=== PATIENT | male | born 1950 | race Caucasian/White ===

== ENCOUNTER → 2019-06-08 | Outpatient (CLI) | payer OTHER ==
--- NOTE | 2019-06-08 14:26 | REP ---
LEFT ELBOW, FOUR VIEWS: Four views of the left elbow performed. No acute fracture or dislocation is seen. There is soft tissue swelling over the olecranon. Rounded calcification is seen adjacent to the medial humeral epicondyle. IMPRESSION: No acute fracture or dislocation. Olecranon soft tissue swelling. Electronically Signed by Eugene Rouse MD 06/09/2019 09:09 A
--- NOTE | 2019-06-08 14:46 | REP ---
Left tibia-fibula four views: There is soft tissue edema adjacent to the lateral malleolus. There is questionably a nondisplaced fracture of the distal fibula. There is an accessory ossicle at the tip of the medial malleolus. No other fracture is identified. Mineralization is normal. Impression: Probable nondisplaced fracture of the distal fibula. Electronically Signed by Eugene Ozuna MD 06/08/2019 02:37 P
--- NOTE | 2019-06-08 15:51 | REP ---
HISTORY: Pain after trauma. COMPARISON: None. A smoothly marginated well-corticated ossific density is seen distal to the medial malleolus. There is tibiotalar marginal osteophytosis. There is narrowing of the mortise. There is a tiny lucency seen involving the cortex of the distal fibula only on one view. There is overlying soft tissue swelling. IMPRESSION: 1. Possible tiny distal fibular fracture which is incomplete and seen in association with overlying soft tissue swelling. This should be correlated clinically. However, I will reiterate that there are no priors for comparison. 2. Old healed medial malleolar fracture. 3. Chronic changes with osteophytosis and asymmetric narrowing of the mortise. 4. Small plantar calcaneal heel spur. Electronically Signed by Louis Silva DO 06/08/2019 05:04 P
== END ==
LOC: M RAD 13:28
PROVIDERS: ATTEND Physician Assistant
DX: M25.772 Osteophyte, left ankle (principal); S59.909A Unspecified injury of unspecified elbow, initial encounter; X58.XXXA Exposure to other specified factors, initial encounter; Y92.89 Other specified places as the place of occurrence of the external cause

== ENCOUNTER → 2020-05-30 | Outpatient (CLI) | payer OTHER ==
--- NOTE | 2020-05-31 15:03 | ECHO ---
DATE OF PROCEDURE: 05/30/2020 Age: 69 Gender: Male Height: 70 inches Weight: 217 pounds Body surface area: 2.15 m2 PATIENT LOCATION: Outpatient. REFERRING PHYSICIAN: Dr. Ramón Cook. INDICATION: Hypertensive heart disease. MEASUREMENTS: 2D Measurements: RV 3.0 cm LV 5.3 cm Septum 1.0 cm Posterior wall 1.0 cm Aortic Root 4.2 cm Ascending aorta 3.9 cm LA 4.0 cm LVEF 65% Doppler Measurements: AV 1.45 m/s LVOT 1.05 m/s LVOT diameter 1.8 cm MV-E 73, A 99, E/A ratio 0.7 Early mitral deceleration time 278 m/s E prime medial 6.5, A prime medial 10.7, E prime lateral 10.9 Average E/E prime ratio 8.4/PCWP 12.3 mmHg PV 0.7 m/s Pulmonary artery acceleration time 116 m/s PASP 3 mmHg IVC 1.8 cm COMMENTS: Normal sinus rhythm without intraventricular conduction disturbance. M-mode and two-dimensional echocardiography was performed with pulsed, continuous wave, color flow, and tissue Doppler studies. Normal left ventricular size, wall thickness, and wall motion. Slightly dilated left atrium with grade 1 left ventricular diastolic dysfunction, but currently normal estimated mean left atrial pressure. Normal right heart chamber sizes and motion with Doppler sign of borderline pulmonary hypertension. Normal inferior vena cava (IVC) size and collapse against an elevated central venous pressure. Mildly dilated aortic root and ascending aorta. Mild aortic valvular sclerosis with slightly asymmetric thickening of the noncoronary cusp, but adequate cusp separation. Very mild aortic insufficiency. Mild degenerative changes of his mitral valvular apparatus without inflow tract obstruction and only very mild insufficiency. Normal appearing tricuspid valve with very mild insufficiency. No apparent intracardiac mass or pericardial effusion. MTDD
== END ==
LOC: M CARPUL 08:20
PROVIDERS: ATTEND Internal Medicine
DX: I11.9 Hypertensive heart disease without heart failure (principal); E78.2 Mixed hyperlipidemia; R73.09 Other abnormal glucose; E66.3 Overweight; M25.562 Pain in left knee

== ENCOUNTER → 2020-07-25 | Outpatient (CLI) | payer OTHER ==
--- NOTE | 2020-07-25 13:25 | REPVR ---
PROCEDURE INFORMATION: Exam: MR Cervical Spine Without Contrast Exam date and time: 07/25/2020 12:09 PM Age: 70 years old Clinical indication: Neck pain; Additional info: Cervicalgia TECHNIQUE: Imaging protocol: Multiplanar magnetic resonance images of the cervical spine without contrast. COMPARISON: CR C-SPINE - OUTSIDE PRIOR 05/22/2020 8:32 AM FINDINGS: Vertebrae: There is no fracture or listhesis. Normal vertebral body alignment and heights are preserved. There is severe intervertebral disc space loss at C6/7. Spinal cord: Normal signal. No cord compression. C2-C3: No significant disc disease. No significant spinal stenosis. C3-C4: There is a shallow disc osteophyte complex. There is moderate facet hypertrophy. There is moderate to severe left neural foraminal narrowing. C4-C5: There is a shallow disc osteophyte complex. There is moderate facet hypertrophy. There is mild right and severe left neural foraminal narrowing. C5-C6: There is a shallow disc osteophyte complex. There is moderate to severe facet hypertrophy asymmetric to the right. There is mild right and severe left neural foraminal narrowing. C6-C7: There is a shallow disc osteophyte complex. There is moderate facet hypertrophy. There is mild bilateral neural foraminal narrowing. C7-T1: There is a shallow disc osteophyte complex asymmetric to the left. There is moderate facet hypertrophy. There is moderate left neural foraminal narrowing. Vertebral arteries: Expected flow voids in the vertebral arteries. Soft tissues: Unremarkable. IMPRESSION: Degenerative disc disease and spondylosis, with multilevel moderate to severe neural foraminal narrowing. Electronically signed by: Odessa Cruz On 07/25/2020 13:25:42 PM
== END ==
LOC: M RAD 11:17
PROVIDERS: ATTEND Internal Medicine
DX: M25.78 Osteophyte, vertebrae (principal); M54.2 Cervicalgia

== ENCOUNTER → 2020-12-14 | Outpatient (CLI) | payer OTHER ==
--- NOTE | 2020-12-14 16:30 | REP ---
INDICATION: RADICULOPATHY. COMPARISON: MR cervical spine 07/25/2020. Images available, no report available. TECHNIQUE: Sagittal T1, T2, stir images obtained. Axial T1 and T2 weighted images of the cervical spine obtained. FINDINGS: On the sagittal T2 weighted images, there is ihnl-ft-ehiakrmj multilevel degenerative disc disease with loss of disc height and disc desiccation seen diffusely throughout the cervical spine. Vertebral heights are overall preserved. No malalignments. Craniovertebral junction is unremarkable. On the sagittal T2 weighted images, the canal appears patent. No evidence of a significant canal stenosis. On the review of axial images, At C2-3: No significant canal or foraminal narrowing. At C3-4: Wfdh-nl-npmuvpdy canal narrowing and tzuf-sr-zmcuwfkn bilateral foraminal narrowing. At C4-5: Sgbw-hr-djhrtohm canal narrowing and gsdx-gu-wutuaosd bilateral foraminal narrowing. At C5-6: Disc-osteophyte complex is eccentric to the left with severe left foraminal narrowing, moderate canal stenosis and mbmm-pv-azdwxqte right foraminal narrowing. At C6-7: Disc-osteophyte complex with juwi-un-ueqnjgqi canal narrowing and evqh-fc-kccwbewj bilateral foraminal narrowing. At C7-T1: No significant canal or foraminal narrowing. When compared to prior study, no gross changes. IMPRESSION: 1. Fois-su-wotxfepu multilevel degenerative disc disease. 2. No significant canal stenosis. 3. Disc-osteophyte complex formation with multilevel foraminal narrowing as described, severe left foraminal narrowing at C5-6 level. 4. When compared to prior study 07/25/2020, no gross changes. <Electronically signed by Marin Bello > 12/14/20 [id number]
== END ==
LOC: M PLARAD 14:51
PROVIDERS: ATTEND Internal Medicine
DX: M54.12 Radiculopathy, cervical region (principal)

== ENCOUNTER → 2021-02-05 | Outpatient (CLI) | payer OTHER ==
--- NOTE | 2021-02-05 16:57 | REP ---
INDICATION: SOB COMPARISON: None TECHNIQUE: Axial noncontrast images from the thoracic inlet to the upper abdomen with coronal and sagittal reformations. This CT examination was performed using the following dose reduction techniques: Automated exposure control, adjustment of mA and/or kv according to the patient's size, and use of iterative reconstruction technique. FINDINGS: The bilateral lung egan are well aerated and clear. No acute consolidation, significant nodule or mass. No pleural effusion or pneumothorax. Tracheobronchial tree is patent. Tortuous thoracic aorta with moderate atherosclerotic changes noted. Pulmonary vasculature appears normal. Atherosclerotic changes to the coronary arteries also identified without cardiomegaly or pericardial effusion. Limited upper abdomen demonstrates normal bilateral adrenal glands. Musculoskeletal structures demonstrate age-related changes without acute osseous abnormality. IMPRESSION: 1. No acute mediastinal or pleuroparenchymal process appreciated. 2. Tortuous thoracic aorta with atherosclerotic changes. <Electronically signed by Sav Corbett > 02/05/21 [id number]
== END ==
LOC: M RAD 16:14
PROVIDERS: ATTEND Internal Medicine
DX: R06.02 Shortness of breath (principal)

== ENCOUNTER → 2024-11-10 | Outpatient (CLI) | payer OTHER | LOC: M PLARAD 14:30 | PROVIDERS: ATTEND Obstetrics & Gynecology Reproductive Endocrinology | DX: R25.1 Tremor, unspecified (principal) ==